=== PATIENT | female | born 1945 | race Caucasian/White ===

== ENCOUNTER 2024-04-17 08:38 | Emergency (ER) | payer MEDICARE, OTHER, SELFPAY ==
[2024-04-17 08:45] VITALS: BP 177/103
[2024-04-17 09:36] VITALS: BMI 24.6
[2024-04-17 09:45] LABS: % Basophils 1.7 % (0-2); % Eosinophils 1.3 % (0-6); % Immature Granulocytes 0.3 % (0-0.5); % Lymphocytes 28.1 % (20.5-51.1); % Monocytes 6.4 % (1.7-9.3); % Neutrophils 62.2 % (42.2-75.2); Absolute Basophils 0.1 10^3/uL (0-0.2); Absolute Eosinophils 0.1 10^3/uL (0-0.7); Absolute Monocytes 0.5 10^3/uL (0.1-0.6); Absolute Neutrophils 4.4 10^3/uL (1.4-6.5); Hematocrit 37.2 % (37.0-47.0); Hemoglobin 12.1 g/dL (12.0-16.0); Mean Corp Hgb Conc. 32.5 g/dL (33.0-37.0); Mean Corpuscular Hgb 31.7 pg (27.0-31.0); Mean Corpuscular Volume 97.4 fL (81.0-99.0); Mean Platelet Volume 8.2 fL (7.4-10.4); Nucleated Red Blood Cells % 0 %; Platelet Count 345 10^3/uL (130-400); Red Blood Cell Count 3.82 10^6/uL (4.20-5.40); Red Cell Dist. Width 13.1 % (11.5-14.5)
--- NOTE | 2024-04-17 09:51 | ED.GENMED ---
History of Present Illness
General
Chief Complaint: Cardiac Symptoms
Source: patient
Exam Limitations: none
Time Seen by Provider: 04/17/24 09:22
Nursing documentation reviewed up to this point in time: agreed with
History of Present Illness
History of Present Illness:
Patient presents to ED secondary to intermittent chest pain over the past 2 weeks, lasting minutes at a time, with spontaneous resolution. Patient also reports associated, at times intermittent palpitations, which has been evaluated in the past via
Holter monitor with her upstream biomanufacturing technician at [facility]. Patient does not know etiology behind what was noted on the Holter monitor was told that her palpitation symptoms correlated with what was noted on Holter monitor. However, this is the
first time that patient is experiencing chest pain, different from generalized pain that she experiences with underlying fibromyalgia. Chest pain described as sharp, with radiation to her left shoulder and back at different times, without any
alleviating or exacerbating factors. Patient does state that she has been walking more recently, and even pushing herself. Denies recent travel or surgery. Denies leg pain or swelling. Denies associated shortness of breath, nausea, or dizziness.
There is family history of heart disease, on her father side. Denies smoking or drinking alcohol.
Review of Systems
Review of Systems
Allergies reviewed?: Yes
All Other Systems: ROS reviewed and negative except as documented in HPI and ROS
Constitutional: Reports no symptoms
EENT: Reports no symptoms
Respiratory: Reports no symptoms; Denies trouble breathing
Cardiac: Reports chest pain and palpitations; Denies diaphoresis
ABD/GI: Reports no symptoms; Denies nausea
Musculoskeletal: Reports no symptoms
Skin: Reports no symptoms
Neurological: Reports no symptoms
Phy Exam
Physical Exam
Physical Exam:
Physical Exam
General: no apparent distress, not acutely ill. afebrile.
Head: nc/at. eomi
Neck: supple. no meningeal signs.
Heart: s1/s2 regular rate and rhythm, no murmur. equal radial pulses.
Lungs: no acute respiratory distress. clear bilaterally
Abdomen: normal bowel sounds. not tender.
Neuro: alert and oriented. no focal neurological deficits
Skin: no rash
Psychiatric: well kept. interactive and cooperative
Extremities: no edema. no calf tenderness.
Scores
Heart Score for Chest Pain Patients
STEMI patient?: No
History: Slightly or Non-Suspicious
ECG: Normal
Age: >/= 65 years
Risk Factors: 1 or 2 Risk Factors
Troponin: </= Normal Limit
Heart Score for Chest Pain Patients: 3
Heart Score Risk: 2.5% MACE over next 6 weeks
Course
Orders/Labs/Results
Orders:
Orders
04/17/24 08:44
EKG- Treatment ONCE
04/17/24 08:48
Electrocardiogram (*1) Stat
Comment: ALREADY DONE IN ED
04/17/24 09:37
Complete Blood Count/With Diff Urgent
Comprehensive Metabolic Panel Urgent
Troponin I Urgent
04/17/24 10:15
CR Chest - 2 Views Urgent
Comment:
Reason For Exam: chest pain
Abnormal Lab Results
04/17/24
09:37
RBC 3.82 L 10^6/uL
(4.20-5.40)
MCH 31.7 H pg
(27.0-31.0)
MCHC 32.5 L g/dL
(33.0-37.0)
04/17/24 09:37
04/17/24 09:37
Vital Signs
Initial and Last Documented VS:
Initial Vital Signs
Temp Pulse Resp BP Pulse Ox
98.1 F 93 18 177/103 97
04/17/24 08:45 04/17/24 08:45 04/17/24 08:45 04/17/24 08:45 04/17/24 08:45
Last Documented Vital Signs
Temp Pulse Resp BP Pulse Ox
98.1 F 96 25 150/86 98
04/17/24 08:45 04/17/24 11:03 04/17/24 11:03 04/17/24 11:03 04/17/24 10:30
MDM/Problems Addressed
MDM/Problems Addressed:
Patient with an unremarkable workup in ED, including blood work and EKG. In light of the fact that patient has had intermittent ongoing symptoms for the past 2 weeks, do not believe that repeat troponin will be beneficial at this time. However, in
light of patient's new onset of chest pain along with family history, it is reasonable that she contact her primary upstream biomanufacturing technician upon discharge for an outpatient urgent consultation. Advised to return to ED immediately with worsening symptoms.
*EKG
Interpreted by ED Provider?: Yes
EKG Intrepretation Date: 04/17/24
Interpretation: normal
Heart Rate: 83
Rate: normal
[place]: normal axis
Interval: normal interval
QRS Pattern: normal QRS
*Critical Care Note
Total Time (30-74mins, 75-104mins- exclusive of procedures): Not Applicable
ED Attending Note
-
Portions of this chart may have been created with voice recognition software.� Occasional wrong word or��sound alike� substitutions may have occurred due to the inherent limitations of voice recognition software.
Discharge Plan
Departure
Patient Disposition: Home (Routine Discharge)
Date of Disposition: 04/17/24
Time of Disposition: 11:06
Patient with high blood pressure during this ER visit?: Yes
Condition: Good
Discharge Problem:
Chest pain, Premature atrial contractions
Instructions: Arrhythmias (DC), Chest Pain NON-DHP Competency Evaluated Nurse Aide Follow Up
Prescriptions:
No Action
acetaminophen [Tylenol] 325 mg Tablet
325 mg PO BIDPRN PRN (Reason: MILD PAIN)
aspirin 325 mg Tablet
325 mg PO DAILYPRN PRN (Reason: CHEST PAIN)
lisinopril 20 mg Tablet
20 mg PO DAILY
Theragen Tablet
1 tab PO DAILY
pantoprazole [Protonix] 40 mg Tablet,Delayed Release (Dr/Ec)
40 mg PO DAILY
ezetimibe [Zetia] 10 mg Tablet
10 mg PO DAILY
bupropion HCl [Wellbutrin XL] 300 mg Tablet Extended Release 24 Hr
300 mg PO DAILY
duloxetine [Cymbalta] 30 mg Capsule,Delayed Release(Dr/Ec)
30 mg PO DAILY
duloxetine [Cymbalta] 60 mg Capsule,Delayed Release(Dr/Ec)
60 mg PO HS
cholecalciferol (vitamin D3) [Vitamin D3] 25 mcg (1,000 unit) Tablet
25 mcg PO DAILY
omega 8-rtk-whe-fish oil [Fish Oil] 1,000 (120-180) mg Capsule
1 cap PO DAILY
turmeric 400 mg Capsule
400 mg PO DAILY
ashwagandha extract 500 mg Capsule
500 mg PO DAILY
Referrals:
Delbert Rader MD [Active] -
Darci Brown MD [Family Provider] -
Activity Restrictions/Additional Instructions:
As discussed, please follow-up with your upstream biomanufacturing technician for further evaluation and treatment. In ED, blood work, EKG, and chest x-ray did not reveal any acute abnormalities. Please consider returning to ED with worsening symptoms.
Interventions
Interventions:
*Risk Screen - Suicide Last Done: 04/17/24 08:44
*General Assessment Last Done: 04/17/24 08:41
*Neglect/Abuse Screening Last Done: 04/17/24 08:41
*Nursing Disposition Last Done: 04/17/24 11:32
ED- Pulmonary Assessment Last Done: 04/17/24 09:36
ED- Cardiac Assessment Last Done: 04/17/24 09:36
Discharge Date and Time
Discharge Date/Time: 04/17/24 11:32
Print Language: [place] CITIZEN
[2024-04-17 10:01] VITALS: BP 142/88
[2024-04-17 10:02] LABS: ALT (SGPT) 25 U/L (0-35); AST (SGOT) 36 U/L (14-36); Albumin 4.4 g/dl (3.5-5.0); Alkaline Phosphatase 51 U/L (38-126); Blood Urea Nitrogen 16 mg/dl (7-17); Calcium 8.7 mg/dl (8.4-10.2); Carbon Dioxide 30 mmol/L (22-30); Chloride 101 mmol/L (98-107); Estimated Creatinine Clearance 56 ml/min; Glucose 94 mg/dl (70-99); Potassium 3.9 mmol/L (3.5-5.1); Sodium 139 mmol/L (135-145); Total Bilirubin 0.5 mg/dl (0.2-1.3); Total Protein 6.7 g/dl (6.3-8.2); eGFR > 60.00
[2024-04-17 10:14] LABS: Troponin I < 0.012 ng/ml
[2024-04-17 11:03] VITALS: BP 150/86
== END 2024-04-17 11:32 | disposition home or self-care (01) ==
LOC: EMR 08:38
PROVIDERS: EMERGENCY PHYSICIAN Emergency Medicine; FAMILY PHYSICIAN Internal Medicine
DX: R07.89 Other chest pain (principal); I49.1 Atrial premature depolarization; M79.7 Fibromyalgia
CPT/HCPCS: 99285; 71046; 80053; 84484; 85025; 93005

== ENCOUNTER 2024-05-30 14:45 | Emergency (ER) | payer MEDICARE, OTHER, SELFPAY ==
[2024-05-30 15:23] VITALS: BP 126/85
--- NOTE | 2024-05-30 15:32 | ED.GENMED ---
ED Provider Triage
<SAMARA Ferrera - Last Filed: 05/30/24 15:34>
-
Patient seen by provider in Triage?: Seen in Triage
Attestation: A medical screening examination has been initiated by a qualified medical provider. Based on the assessment performed at this time, it has been determined that an emergent medical condition may exist and the patient has been informed
that further medical evaluation and possible additional diagnostic testing may be needed.
HPI: Patient is a 78-year-old who started with vertigo 3 days ago. She reports it was worse 3 days ago better now. She could not even turn her head or look to different directions without feeling vertigo. She has been physical happy for balance
and they were concerned that this was more of a stroke and sent here to the ER. She denies any recent trauma, headaches .
GENERAL: Alert , in no apparent distress
EYE: No visual abnormalities.
NECK: Trachea midline
ENT: No visible abnormalities.
LUNGS: No acute respiratory distress
NEUROLOGICAL: Alert and oriented
SKIN: Skin intact. No visible changes.
MUSCULOSKELETAL: Moving extremities normally
PSYCH: Normal and appropriate interaction.
This is a medical evaluation conducted in person to initiate diagnostic evaluation and provide initial therapeutics. Please see further documentation by the treating clinician.
History of Present Illness
<SAMARA Ferrera - Last Filed: 05/30/24 15:34>
General
Chief Complaint: Dizziness
Time Seen by Provider: 05/30/24 20:07
<Olive Turner MD - Last Filed: 05/30/24 22:49>
General
Source: patient and spouse
Exam Limitations: none
Nursing documentation reviewed up to this point in time: agreed with
History of Present Illness
History of Present Illness:
The patient is a very pleasant 78-year-old female who reports that she experienced sudden onset of dizziness 4 days ago. Patient reports that she experienced a sense of the room spinning and had to hold onto her to walk steadily. The
patient reports she has had vertigo in the past and it felt like vertigo. Patient reports that this vertigo lasted for 3 days. She was encouraged by her primary care doctor to be evaluated by physical therapy today, which she did. However,
patient reports that her symptoms this morning when she woke up were completely gone. While being evaluated in physical therapy today, the patient reports that the physical therapist had her take a few steps and move her head from [id number],
which she had some difficulty doing. This prompted the physical therapist to send her to the ED for evaluation. Patient reports that she has no symptoms at this time. She reports she is able to walk steadily denies a headache. She reports she
has never had any visual changes, weakness or numbness. Patient reports she feels well and really wants to go home
Past History
<Olive Turner MD - Last Filed: 05/30/24 22:49>
Past History
ED Past Medical History: HTN
ED Past Surgical History: Other
Social History
Tobacco: Non-smoker
Alcohol: None
Drug: None
Personal:
Living: with family
Employment: Other
Family History
Family History: Other
Review of Systems
<Olive Turner MD - Last Filed: 05/30/24 22:49>
Review of Systems
Allergies reviewed?: Yes
Constitutional: Reports no symptoms
EENT: Reports no symptoms
Respiratory: Reports no symptoms
Cardiac: Reports no symptoms
ABD/GI: Reports no symptoms
: Reports no symptoms
Musculoskeletal: Reports no symptoms
Skin: Reports no symptoms
Neurological: Reports dizzy
Endocrine: Reports no symptoms
Hematologic/Lymphatic: Reports no symptoms
Psychiatric: Reports no symptoms
Phy Exam
<Olive Turner MD - Last Filed: 05/30/24 22:49>
Physical Exam
Physical Exam:
Physical Exam
General: no apparent distress, not acutely ill. Smiling, conversational
Neck: supple. no meningeal signs. normal psoterior pharynx
Heart: s1/s2 regular rate and rhythm, no murmur. equal radial pulses.
Lungs: no acute respiratory distress. clear bilaterally
Abdomen: normal bowel sounds. not tender. no CVAT
Neuro: alert and orientedx3. no focal neurological deficits. 5 out of 5 strength in all extremities without drift. Normal finger-nose. Steady gait. Visual laws intact. Extraocular muscles intact
Skin: no rash
Psychiatric: well kept. interactive and cooperative
Extremities: no edema. no calf tenderness. negative homans. good distal pulses
Course
<SAMARA Ferrera - Last Filed: 05/30/24 15:34>
Orders/Labs/Results
Orders:
Orders
05/30/24 15:23
Electrocardiogram (*1) Urgent
Reason for Study: Vertigo / Dizzy
EKG- Treatment ONCE
05/30/24 15:33
CT Head W/o Iv Contrast Urgent
Comment:
Reason For Exam: vertigo
05/30/24 15:47
CMP [Comprehensive Metabolic Panel] Urgent
Complete Blood Count/With Diff Urgent
Abnormal Lab Results
05/30/24
15:47
RBC 4.10 L 10^6/uL
(4.20-5.40)
MCV 99.3 H fL
(81.0-99.0)
MCH 32.4 H pg
(27.0-31.0)
MCHC 32.7 L g/dL
(33.0-37.0)
Carbon Dioxide 31 H mmol/L
(22-30)
BUN 19 H mg/dl
(7-17)
05/30/24 15:47
05/30/24 15:47
Vital Signs
Initial and Last Documented VS:
Initial Vital Signs
Temp Pulse Resp BP Pulse Ox
98.3 F 73 16 126/85 96
05/30/24 15:23 05/30/24 15:23 05/30/24 15:23 05/30/24 15:23 05/30/24 15:23
Last Documented Vital Signs
Temp Pulse Resp BP Pulse Ox
98.3 F 65 18 152/88 94
05/30/24 15:23 05/30/24 20:24 05/30/24 20:24 05/30/24 20:24 05/30/24 20:24
<Olive Turner MD - Last Filed: 05/30/24 22:49>
Orders/Labs/Results
Orders:
Orders
05/30/24 15:23
Electrocardiogram (*1) Urgent
Reason for Study: Vertigo / Dizzy
EKG- Treatment ONCE
05/30/24 15:33
CT Head W/o Iv Contrast Urgent
Comment:
Reason For Exam: vertigo
05/30/24 15:47
CMP [Comprehensive Metabolic Panel] Urgent
Complete Blood Count/With Diff Urgent
Abnormal Lab Results
05/30/24
15:47
RBC 4.10 L 10^6/uL
(4.20-5.40)
MCV 99.3 H fL
(81.0-99.0)
MCH 32.4 H pg
(27.0-31.0)
MCHC 32.7 L g/dL
(33.0-37.0)
Carbon Dioxide 31 H mmol/L
(22-30)
BUN 19 H mg/dl
(7-17)
05/30/24 15:47
05/30/24 15:47
Vital Signs
Initial and Last Documented VS:
Initial Vital Signs
Temp Pulse Resp BP Pulse Ox
98.3 F 73 16 126/85 96
05/30/24 15:23 05/30/24 15:23 05/30/24 15:23 05/30/24 15:23 05/30/24 15:23
Last Documented Vital Signs
Temp Pulse Resp BP Pulse Ox
98.3 F 65 18 152/88 94
05/30/24 15:23 05/30/24 20:24 05/30/24 20:24 05/30/24 20:24 05/30/24 20:24
<Olive Turner MD - Last Filed: 05/30/24 22:49>
MDM/Problems Addressed
Differential Diagnosis Includes:
Benign positional vertigo which has resolved, TIA with resolved symptoms, hyponatremia
Chronic conditions affecting care: HTN
<Olive Turner MD - Last Filed: 05/30/24 22:49>
*Radiology
Radiology exam reviewed: radiology read reviewed
*Pulse Oximetry
Patient hypoxic: no
*EKG
Interpreted by ED Provider?: Yes
Interpretation: abnormal
Comparison EKG: no comparison EKG present
Rate: normal
Rhythm: sinus
[place]: left axis deviation
Interval: normal interval
QRS Pattern: normal QRS
Ischemia: non-specific ST changes
*Business Office Associate Interpretation
Rate: normal
Interpretation: normal
Rhythm: sinus
*Critical Care Note
Total Time (30-74mins, 75-104mins- exclusive of procedures): Not Applicable
Data Reviewed
Source: patient and spouse
<Olive Turner MD - Last Filed: 05/30/24 22:49>
Patient Management
Social determinants of health affecting care: Living situation and Strong social support
Escalation/DeEscalation of care consider admission/obs:
Patient has a completely normal neurological exam. She looks well and comfortable. She has a steady gait. She would really rather go home. She understands there is a small risk that she had a TIA, but states that she would rather go home and
follow-up with her primary care doctor. Patient understands to return with any visual changes, weakness, numbness or recurrent dizziness
ED Attending Note
<SAMARA Ferrera - Last Filed: 05/30/24 15:34>
-
Portions of this chart may have been created with voice recognition software.� Occasional wrong word or��sound alike� substitutions may have occurred due to the inherent limitations of voice recognition software.
Discharge Plan
Departure
Patient Disposition: Home (Routine Discharge)
Date of Disposition: 05/30/24
Time of Disposition: 20:26
Patient with high blood pressure during this ER visit?: Yes
Condition: Good
Covid-19: Not Applicable
Discharge Problem:
Vertigo
Instructions: Dizziness, BLOOD PRESSURE
Prescriptions:
No Action
acetaminophen [Tylenol] 325 mg Tablet
325 mg PO BIDPRN PRN (Reason: MILD PAIN)
aspirin 325 mg Tablet
325 mg PO DAILYPRN PRN (Reason: CHEST PAIN)
lisinopril 20 mg Tablet
20 mg PO DAILY
Theragen Tablet
1 tab PO DAILY
pantoprazole [Protonix] 40 mg Tablet,Delayed Release (Dr/Ec)
40 mg PO DAILY
ezetimibe [Zetia] 10 mg Tablet
10 mg PO DAILY
bupropion HCl [Wellbutrin XL] 300 mg Tablet Extended Release 24 Hr
300 mg PO DAILY
duloxetine [Cymbalta] 30 mg Capsule,Delayed Release(Dr/Ec)
30 mg PO DAILY
duloxetine [Cymbalta] 60 mg Capsule,Delayed Release(Dr/Ec)
60 mg PO HS
cholecalciferol (vitamin D3) [Vitamin D3] 25 mcg (1,000 unit) Tablet
25 mcg PO DAILY
omega 4-ggp-slh-fish oil [Fish Oil] 1,000 (120-180) mg Capsule
1 cap PO DAILY
turmeric 400 mg Capsule
400 mg PO DAILY
ashwagandha extract 500 mg Capsule
500 mg PO DAILY
Activity Restrictions/Additional Instructions:
Follow-up with your primary care doctor within 1 week. Return with any recurrence of dizziness or any vision changes
Interventions
Interventions:
*Risk Screen - Suicide Last Done: 05/30/24 15:23
*General Assessment Last Done: 05/30/24 15:23
*Neglect/Abuse Screening Last Done: 05/30/24 20:24
ED- Fall Risk Assessment Last Done: 05/30/24 20:28
*ED COVID-19 Vaccine History Last Done: 05/30/24 20:24
*Nursing Disposition Last Done: 05/30/24 20:50
ED- Neurological Assessment Last Done: 05/30/24 20:27
ED Swallowing Screen Last Done: 05/30/24 20:27
Discharge Date and Time
Discharge Date/Time: 05/30/24 20:51
Print Language: CRO[place]
[2024-05-30 15:53] LABS: % Basophils 1.6 % (0-2); % Eosinophils 1.6 % (0-6); % Immature Granulocytes 0.4 % (0-0.5); % Lymphocytes 30.4 % (20.5-51.1); % Monocytes 6.1 % (1.7-9.3); % Neutrophils 59.9 % (42.2-75.2); Absolute Basophils 0.1 10^3/uL (0-0.2); Absolute Eosinophils 0.1 10^3/uL (0-0.7); Absolute Lymphocytes 2.5 10^3/uL (1.2-3.4); Absolute Monocytes 0.5 10^3/uL (0.1-0.6); Absolute Neutrophils 4.9 10^3/uL (1.4-6.5); Hematocrit 40.7 % (37.0-47.0); Hemoglobin 13.3 g/dL (12.0-16.0); Mean Corp Hgb Conc. 32.7 g/dL (33.0-37.0); Mean Corpuscular Hgb 32.4 pg (27.0-31.0); Mean Corpuscular Volume 99.3 fL (81.0-99.0); Mean Platelet Volume 8.2 fL (7.4-10.4); Nucleated Red Blood Cells % 0 %; Platelet Count 344 10^3/uL (130-400); Red Cell Dist. Width 12.9 % (11.5-14.5); White Blood Cell Count 8.2 10^3/uL (4.8-10.8)
[2024-05-30 16:11] LABS: ALT (SGPT) 20 U/L (0-35); AST (SGOT) 29 U/L (14-36); Albumin 4.3 g/dl (3.5-5.0); Alkaline Phosphatase 51 U/L (38-126); Blood Urea Nitrogen 19 mg/dl (7-17); Carbon Dioxide 31 mmol/L (22-30); Chloride 99 mmol/L (98-107); Glucose 83 mg/dl (70-99); Potassium 4.4 mmol/L (3.5-5.1); Sodium 136 mmol/L (135-145); Total Bilirubin 0.4 mg/dl (0.2-1.3); Total Protein 6.6 g/dl (6.3-8.2); eGFR > 60.00
[2024-05-30 20:24] VITALS: BP 152/88
== END 2024-05-30 20:51 | disposition home or self-care (01) ==
LOC: EMR 14:45
PROVIDERS: Emergency Medicine; EMERGENCY PHYSICIAN Emergency Medicine; FAMILY PHYSICIAN Internal Medicine
DX: R42 Dizziness and giddiness (principal); I10 Essential (primary) hypertension
CPT/HCPCS: 99284; 70450; 80053; 85025; 93005

== ENCOUNTER → 2024-06-18 10:46 | Outpatient (REF) | payer MEDICARE, OTHER, SELFPAY | LOC: HWRAD 10:46 | PROVIDERS: ATTENDING PHYSICIAN Internal Medicine | DX: R42 Dizziness and giddiness (principal); I70.90 Unspecified atherosclerosis; I67.2 Cerebral atherosclerosis | CPT/HCPCS: 93880 ==

== ENCOUNTER → 2024-07-11 12:55 | Outpatient (REF) | payer MEDICARE, OTHER, SELFPAY | LOC: RSP 12:55 | PROVIDERS: ATTENDING PHYSICIAN Internal Medicine | DX: R06.09 Other forms of dyspnea (principal) | CPT/HCPCS: 94727; 94729; 88738; 94010 ==

== ENCOUNTER → 2024-09-23 11:15 | Outpatient (REF) | payer MEDICARE, OTHER, SELFPAY | LOC: DHSLP 11:15 | PROVIDERS: ATTENDING PHYSICIAN Internal Medicine Critical Care Medicine; FAMILY PHYSICIAN Internal Medicine | DX: G47.33 Obstructive sleep apnea (adult) (pediatric) (principal) | CPT/HCPCS: 95800 ==

== ENCOUNTER 2025-02-14 23:30 | Observation (INO) | payer MEDICARE, OTHER, SELFPAY ==
[2025-02-14 16:58] VITALS: BP 130/94
[2025-02-14 17:25] LABS: Hematocrit 37.6 % (37.0-47.0); Hemoglobin 12.3 g/dL (12.0-16.0); Mean Corp Hgb Conc. 32.7 g/dL (33.0-37.0); Mean Corpuscular Volume 96.2 fL (81.0-99.0); Nucleated Red Blood Cells % 0 %; Platelet Count 363 10^3/uL (130-400); Red Cell Dist. Width 13.2 % (11.5-14.5)
[2025-02-14 17:43] LABS: APTT 28.3 Sec (23.4-35.0); INR 0.91; PT 12.5 Sec (11.4-14.6)
[2025-02-14 17:45] LABS: ALT (SGPT) 26 U/L (0-35); AST (SGOT) 29 U/L (14-36); Albumin 4.3 g/dl (3.5-5.0); Alkaline Phosphatase 52 U/L (38-126); Blood Urea Nitrogen 22 mg/dl (7-17); Calcium 9.0 mg/dl (8.4-10.2); Carbon Dioxide 30 mmol/L (22-30); Chloride 101 mmol/L (98-107); Glucose 94 mg/dl (70-99); Potassium 4.7 mmol/L (3.5-5.1); Sodium 137 mmol/L (135-145); Total Protein 6.5 g/dl (6.3-8.2); eGFR > 60.00
[2025-02-14 20:40] VITALS: BMI 25.3
[2025-02-14 20:43] VITALS: BP 132/84
[2025-02-14 21:00] VITALS: BP 132/85
[2025-02-14] MEDS: NSS 1000 IV (21:15)
--- NOTE | 2025-02-14 21:52 | ED.GENMED ---
History of Present Illness
<Misa Fang MD - Last Filed: 02/14/25 21:53>
General
Chief Complaint: Dizziness
Time Seen by Provider: 02/14/25 21:18
<Marie Briggs NP - Last Filed: 02/15/25 13:23>
General
Source: patient
Exam Limitations: none
Nursing documentation reviewed up to this point in time: agreed with
History of Present Illness
History of Present Illness:
Patient to ED with report of migraine headache and vertigo this AM and yesterday AM. States she woke both days with her symptoms. SHe reports a history of migraines as a child but that her migraines became infrequent as an adult. Her childhood
migraines were centerered around her eye while the pain she has had the passt 2 mornings has been diffuse. Pain resolved with tylenol. SHe had her first episode of vertigo in May and was treated with antivert and vestibular rehab. She has had
no further issues until yesterday AM. SHe took antivert with improvement in dizziness. States she was seen again today by vestibular therapist and was told that testing today was concerning for a central cause and she should come to ED as this
could be precurser to a stroke. Brought to ED by spouse for eval. SHe is awake and alert. Reports still with sensation of feeling off-balance when standing or ambulating but improved from AM.
Past History
<Misa Fang MD - Last Filed: 02/14/25 21:53>
Past History
ED Past Medical History: HTN
ED Past Surgical History: Other
Social History
Tobacco: Non-smoker
Alcohol: None
Drug: None
Personal:
Living: with family
Employment: Other
Family History
Family History: Other
<Marie Briggs NP - Last Filed: 02/15/25 13:23>
Past History
ED Past Medical History: GERD
Review of Systems
<Marie Briggs SENIOR MANAGER - Last Filed: 02/15/25 13:23>
Review of Systems
Allergies reviewed?: Yes
All Other Systems: ROS reviewed and negative except as documented in HPI and ROS
Constitutional: Reports no symptoms
EENT: Reports no symptoms
Respiratory: Reports no symptoms
Cardiac: Reports no symptoms
ABD/GI: Reports no symptoms
: Reports no symptoms
Musculoskeletal: Reports no symptoms
Skin: Reports no symptoms
Neurological: Reports dizzy and headache
Psychiatric: Reports no symptoms
Phy Exam
<Marie Briggs SENIOR MANAGER - Last Filed: 02/15/25 13:23>
General Physical Exam
General Presentation: well appearing and mild distress
General age: appears stated age
General Skin: warm
General Habitus: normal
General Mental: alert
General Hydration: appears well hydrated
ENT Exam
ENT Exam: EOMI, TM's normal, neck supple and normocephalic
Eye Exam
Eye Exam: PERRL, EOMI, conjunctiva normal, disc sharp and globe normal
Cardiovascular Exam
Cardiovascular Exam: regular rate/rhythm and no edema
NIH Stroke Score
Level of Consciousness: 0 - Alert
LOC questions: 0-Answers both correctly
LOC Commands: 0-Performs both correctly
Best Gaze: 0-Normal
Visual Green: 0=Normal, no visual loss
Facial palsy: 0=Normal, symmetrical
Motor - Right Arm: 0=No drift 10 seconds
Motor - Left Arm: 0=No drift 10 seconds
Motor - Right Le-No drift 5 seconds
Motor - Left Le-No drift 5 seconds
Limb Ataxia: 0-Absent
Sensation: 0-Normal
Best Language: 0-No aphasia
Dysarthria: 0-Normal
Extinction and Inattention: 0-No abnormality
Total Score:: 0
Ita Coma Scale
Eye Opening: Spontaneous
Verbal Response: Oriented
Motor Response: Obeys Commands
GCS Total Score: 15
Mental
Mental Status: oriented to person, oriented to place, oriented to time and usual mental status
Cranial
Cranial Nerves: normal
EOM (CN3/4/6): intact
Motor
Seizure Activity: none
Gait: normal
Tremors: none
Right upper extremity: 4
Right lower extremity: 4
Left upper extremity: 4
Left lower extremity: 4
Bilateral upper extremities: 4
Bilateral lower extremities: 4
Sensory
Sensory Exam: intact
Cerebellar
Cerebellar Function: normal finger to nose and normal Romberg test
Musculoskeletal Exam
Musculoskeletal Exam: full ROM and neuro vasc intact
Skin Exam
Skin Exam: normal color, warm/dry and no rash
Psychiatric Exam
Psychiatric Exam: normal mood/affect
Course
<Misa Fang MD - Last Filed: 02/14/25 21:53>
Orders/Labs/Results
Orders:
Orders
02/14/25 17:07
CT Head W/o Iv Contrast Urgent
Comment:
Reason For Exam: central vertigo
02/14/25 17:15
Complete Blood Count/With Diff Urgent
Comprehensive Metabolic Panel Urgent
PT/INR [Prothrombin Time] Urgent
PTT Urgent
02/14/25 17:57
Electrocardiogram (*1) Urgent
Reason for Study: Vertigo / Dizzy
02/14/25 17:58
EKG- Treatment ONCE
02/14/25 21:14
0.9% Sodium Chloride 1000 ml [Nss] 1,000 ml IV BOLUS
02/14/25 22:49
NEUROLOGY CONSULT Urgent
Consulting Provider: Tameka Horne
Was physician already notified: Yes
02/14/25 23:29
Duloxetine Delayed Release [Cymbalta Delayed Release] 30 mg PO NOW STA
Abnormal Lab Results
02/14/25
17:15
RBC 3.91 L 10^6/uL
(4.20-5.40)
MCH 31.5 H pg
(27.0-31.0)
MCHC 32.7 L g/dL
(33.0-37.0)
Absolute Monos (auto) 0.7 H 10^3/uL
(0.1-0.6)
BUN 22 H mg/dl
(7-17)
02/14/25 17:15
02/14/25 17:15
Vital Signs
Initial and Last Documented VS:
Initial Vital Signs
Temp Pulse Resp BP Pulse Ox
98.1 F 79 18 130/94 94
02/14/25 16:58 02/14/25 16:58 02/14/25 16:58 02/14/25 16:58 02/14/25 16:58
Last Documented Vital Signs
Temp Pulse Resp BP Pulse Ox
97.3 F 74 16 113/67 98
02/15/25 11:46 02/15/25 11:46 02/15/25 11:46 02/15/25 11:46 02/15/25 08:00
<Marie Briggs NP - Last Filed: 02/15/25 13:23>
Orders/Labs/Results
Orders:
Orders
02/14/25 17:07
CT Head W/o Iv Contrast Urgent
Comment:
Reason For Exam: central vertigo
02/14/25 17:15
Complete Blood Count/With Diff Urgent
Comprehensive Metabolic Panel Urgent
PT/INR [Prothrombin Time] Urgent
PTT Urgent
02/14/25 17:57
Electrocardiogram (*1) Urgent
Reason for Study: Vertigo / Dizzy
02/14/25 17:58
EKG- Treatment ONCE
02/14/25 21:14
0.9% Sodium Chloride 1000 ml [Nss] 1,000 ml IV BOLUS
02/14/25 22:49
NEUROLOGY CONSULT Urgent
Consulting Provider: Tameka Horne
Was physician already notified: Yes
02/14/25 23:29
Duloxetine Delayed Release [Cymbalta Delayed Release] 30 mg PO NOW STA
Abnormal Lab Results
02/14/25
17:15
RBC 3.91 L 10^6/uL
(4.20-5.40)
MCH 31.5 H pg
(27.0-31.0)
MCHC 32.7 L g/dL
(33.0-37.0)
Absolute Monos (auto) 0.7 H 10^3/uL
(0.1-0.6)
BUN 22 H mg/dl
(7-17)
02/14/25 17:15
02/14/25 17:15
Vital Signs
Initial and Last Documented VS:
Initial Vital Signs
Temp Pulse Resp BP Pulse Ox
98.1 F 79 18 130/94 94
02/14/25 16:58 02/14/25 16:58 02/14/25 16:58 02/14/25 16:58 02/14/25 16:58
Last Documented Vital Signs
Temp Pulse Resp BP Pulse Ox
97.3 F 74 16 113/67 98
02/15/25 11:46 02/15/25 11:46 02/15/25 11:46 02/15/25 11:46 02/15/25 08:00
<Misa Fang MD - Last Filed: 02/14/25 21:53>
*Pulse Oximetry
SaO2: 95
Oxygen Mode of Delivery: Room air
<Marie Briggs NP - Last Filed: 02/15/25 13:23>
*Radiology
Radiology exam reviewed: radiology read reviewed
*Pulse Oximetry
Patient hypoxic: no
*Critical Care Note
Total Time (30-74mins, 75-104mins- exclusive of procedures): Not Applicable
<Marie Briggs NP - Last Filed: 02/15/25 13:23>
Update Note
Update Note:
Patient to ED with report of change in migraines, vertigo x 2 days. Seen by vestibular therpast who was concerned about changes in testing results today. Sent to ED for eval. vertigo and migraine responding to her meds however still unstable with
ambulation. Will admit to hospitalist, for MRI in AM. Dr. Horne consulted.
ED Attending Note
<Misa Fang MD - Last Filed: 02/14/25 21:53>
ED Attending Note
Patient seen and examined by attending physician: Yes
I performed the substantive portion of visit, reviewed & personally made and approve the management plan that is documented in note by myself or GODWIN.: Yes
ED Attending Note:
79-year-old female with a history of vestibular migraines which she says manifest initially as blurry vision followed by pressure in the midface area. She sees a vestibular therapist. Yesterday morning she developed intense feeling of vertigo
relieved with Antivert. She was fine throughout the day and then this morning she again had intense vertigo such that she needed to hold onto her . She feels 'wobbly' when she is up and about but does not experience any sense of imbalance
spinning etc. while laying here in the bed. Vestibular therapist did extensive examination and was concern for central process based on a 'positive hints exam' and direction changing nystagmus. Here, patient denies diplopia, dysarthria, dysphagia.
No dysmetria noted on exam. On my exam, no nystagmus noted, [id number] normal, cranial nerves II through XII intact. Given suspicion of potential for central process which cannot be fully excluded with a CT here, patient will be kept
overnight for observation and further testing
-
Portions of this chart may have been created with voice recognition software.� Occasional wrong word or��sound alike� substitutions may have occurred due to the inherent limitations of voice recognition software.
Discharge Plan
Departure
Patient Disposition: Admit
Date of Disposition: 02/14/25
Time of Disposition: 22:47
Presentation/result/management discussed w/ accepting MD/DO: Hospitalist
Condition: Fair
Discharge Problem:
Vertigo
Interventions
Interventions:
*Risk Screen - Suicide Last Done: 02/14/25 16:58
*General Assessment Last Done: 02/14/25 20:38
*Neglect/Abuse Screening Last Done: 02/14/25 16:58
*ED- Fall Risk Assessment Last Done: 02/14/25 20:38
*ED COVID-19 Vaccine History Last Done: 02/14/25 20:38
*Nursing Disposition Last Done: 02/15/25 00:39
ED- Neurological Assessment Last Done: 02/14/25 21:00
ED- Cardiac Assessment Last Done: 02/14/25 21:00
ED Swallowing Screen Last Done: 02/14/25 21:00
Discharge Date and Time
Discharge Date/Time: 02/15/25 00:40
[2025-02-14 22:00] VITALS: BP 145/90
--- NOTE | 2025-02-14 22:59 | HPS.HSE ---
Family Physician
-
Family Physician: Nya Lezama
Chief Complaint
-
vertigo and migraine
History of Present Illness
Patient is a 79-year-old female with past medical history significant for hypertension, hyperlipidemia, migraines, fibromyalgia and osteoporosis who presented to [facility] ED for evaluation of vertigo and migraine. Patient reports waking this morning and
yesterday morning with a migraine with diffuse pain and vertigo. Patient reports taking meclizine [id number] yesterday with positive effect and today took 1 dose and went to see vestibular therapist who did some testing and requested patient come to ED
for evaluation for possible central cause. Patient reports that her vertigo has been the room spinning and does cause some nausea. She reports currently she is just feeling 'wobbly,' with no spinning. Denies any recent illness, fever, chills,
weakness, vomiting, confusion, facial droop, numbness or garbled speech.
Medical History
Past Medical History
Past Medical History: Reports Other
Additional Past Medical History:
hypertension
hyperlipidemia
migraines
fibromyalgia
osteoporosis
Luc-Danlos Syndrome
Past Surgical History: Reports Other
Additional Past Surgical History:
Discectomy
Tubal ligation
Meniscus repair
R rotator cuff repair
R/L knee replacements
Pelvic floor
L shoulder replaced
Social History
Tobacco: Former Smoker (quit 48 years ago)
Alcohol: Occasional (rarely )
Drug: None
Personal:
Living: With Family
Employment: Retired
Family History
Family History: Not pertinent
Allergies / Home Medications
Allergies reflects when Allergies were last updated in [facility].
Home Medications with original date entered in [facility]
Allergy/Medication List:
Allergies
Allergy/AdvReac Type Severity Reaction Status Date / Time
Sulfa (Sulfonamide Allergy Unknown Verified 02/14/25 16:58
Antibiotics)
Home Medications
acetaminophen 325 mg tablet (Tylenol) 325 mg PO BIDPRN PRN MILD PAIN 04/17/24
ashwagandha extract 500 mg capsule 500 mg PO DAILY 04/17/24
bupropion HCl 300 mg 24 hr tablet, extended release (Wellbutrin XL) 300 mg PO DAILY 04/17/24
cholecalciferol (vitamin D3) 25 mcg (1,000 unit) tablet (Vitamin D3) 25 mcg PO DAILY 04/17/24
ezetimibe 10 mg tablet (Zetia) 10 mg PO DAILY 04/17/24
lisinopril 20 mg tablet 40 mg PO DAILY 04/17/24
omega 1-fpd-fis-fish oil 1,000 mg (120 mg-180 mg) capsule (Fish Oil) 1 cap PO DAILY 04/17/24
pantoprazole 40 mg tablet,delayed release (Protonix) 40 mg PO DAILY 04/17/24
therapeutic multivitamin 1 tab PO DAILY 04/17/24
turmeric 400 mg capsule 400 mg PO DAILY 04/17/24
duloxetine 30 mg capsule,delayed release 30 mg PO BID 02/14/25
metoprolol succinate 25 mg capsule sprinkle, ext. release 24 hr 25 mg PO DAILY 02/14/25
Review of Systems
-
History Source: Patient
Constitutional: Denies Fever or Chills
EENT: Denies Sore Throat
Respiratory: Denies Cough or Trouble Breathing
Cardiac: Denies Chest Pain, Diaphoresis, Palpitations or Syncope
Abdomen/GI: Reports Nausea; Denies Abdominal Pain, Vomiting, Diarrhea or Constipated
: Denies Dysuria, Frequency or Urgency
Musculoskeletal: Denies Joint Pain or Joint Swelling
Skin: Denies Rash
Neurological: Reports Dizzy and Headache; Denies Weakness or Numbness
Physical Exam
Vital Signs
Vital Signs
Temp Pulse Resp BP Pulse Ox
98.1 F 76 19 145/90 96
02/14/25 16:58 02/14/25 22:00 02/14/25 22:00 02/14/25 22:00 02/14/25 22:00
Physical Exam
General: Well Developed, Well Nourished, No Apparent Distress, Comfortable and Conversant
HEENT: NormoCephalic, Moist mucous membranes and Atraumatic
Respiratory: Clear and Non Labored Respirations; No Wheezes, Rales, Rhonchi or Crackles
Cardiac: S1/S2 and Regular Rhythm; No Murmur, Rub or Gallop
Breast: Deferred by me
GI: Soft, Non Tender, Non Distended and Normal Bowel Sounds; No Organomegaly
Rectal: Deferred by Provider
Genito-urinary: Deferred by me
Musculoskeletal: No Clubbing, No Cyanosis and No Edema
Skin: Warm and IV/Catheter Site; No Rash
Neuro: Awake, AO x 3, No Motor Deficits, Nonfocal/grossly intact, Cranial Nerves Intact (II-XII) and No Sensory Deficits; No Slurred Speech, Facial Droop, Tremors or Sedated
Psych: Calm and Intact Judgment/Insight
Laboratory Results
-
02/14/25 17:15
02/14/25 17:15
Laboratory Results
PT 12.5 Sec (11.4-14.6) 02/14/25 17:15
INR 0.91 02/14/25 17:15
APTT 28.3 Sec (23.4-35.0) 02/14/25 17:15
Total Bilirubin 0.2 mg/dl (0.2-1.3) 02/14/25 17:15
AST 29 U/L (14-36) 02/14/25 17:15
ALT 26 U/L (0-35) 02/14/25 17:15
Alkaline Phosphatase 52 U/L (38-126) 02/14/25 17:15
Data Reviewed
-
CT Scan: Report Reviewed by me (Head CT: No acute intracranial abnormality.)
Medical Tests (Nuc Med, Echo, EKG etc): Report Reviewed by me (EKG: NORMAL SINUS RHYTHM)
Lab Data: Labs Reviewed by me
Impression/Plan
-
IMPRESSION/PLAN:
#vertigo and migraine 2/2 migraine vs. CVA/TIA
Head CT: No acute intracranial abnormality.
EKG: NORMAL SINUS RHYTHM
- Admit to telemetry
- Consult Neurology
- MRI in morning
- NIH and neuro checks per protocol
#hypertension
- continue lisinopril and metoprolol
#hyperlipidemia
- continue ezetimibe
#fibromyalgia
- continue Cymbalta
#migraines
#osteoporosis
Code status: full code
DVT prophylaxis: SCDs
[2025-02-14] MEDS: CYMBALTA DELAYED RELEASE 30 MG PO (23:35)
--- NOTE | 2025-02-14 23:51 | W.PN.UPDATE ---
Update Note
Progress Note Update
Patient seen and conjunction with nurse practitioner, I agree with the findings on history and physical. I concur with the assessment and plan.
Briefly, this is a 79-year-old female with past medical history significant for depression, hypertension, hyperlipidemia, GERD, prior episodes of vertigo who presents to the emergency department with approximately 2 days of dizziness. She reports
that dizziness started 1 day ago after getting up from bed. She reports when she starts to walk she noticed dizzy sensation associated with room spinning and nausea. She denies any vomiting. She denies having any palpitations or lightheadedness
or chest pain. She took meclizine x 2 during the day with resolution. The following morning she had another episode of dizziness and went to see a physical therapist who referred her to the emergency department.
Patient was previously seen in the emergency department for dizziness earlier in the year and was managed with meclizine. She reports some associated headache but denies any other focal logical deficits such as blurry vision or double vision. She
denies any weakness numbness or tingling.
In the emergency department she was afebrile, blood pressure was 145/90 with a pulse of 76 and she was satting 96% on room air. ECG shows a normal sinus rhythm at a rate of 70.
CT of her head was nonacute. CBC was unremarkable electrolytes BUN and creatinine were all normal.
Assessment and plan
Vertigo�patient with history of vertigo treated with meclizine suggestive of a likely peripheral vertigo such as M�ni�re's however cannot rule out central vertigo at this time. Currently patient is asymptomatic without dizziness vertigo nausea
vomiting or headache.
- Admit to telemetry observation
- Neurochecks Q46
- MRI brain
� Continue meclizine as needed
- Continue ezetimibe, metoprolol and lisinopril
� Check lipid panel and A1c in a.m.
- Neurology consult
DVT prophylaxis�SCDs
CODE STATUS�full code
[2025-02-15] VITALS (8 sets, daily range): BP systolic 113–166; BP diastolic 67–103; PULSE 82
--- NOTE | 2025-02-15 07:55 | CON.NEURO ---
Consultation
Order
Date of Consultation: 02/15/25
Requesting Provider: Marie Briggs NP
Reason for Consult: vertigo
Consult neurology Consultation Note.
HPI:This is a 79-year-old right-handed woman who presented to [facility] on 02/14/2025 with vertigo. According to the patient she woke up on 02/13/2025 with severe positional spinning. The vertigo episodes lasted for a few minutes at
a time and were exacerbated by walking and getting up, while lying flat provided some relief. She did not experience nausea, changes in vision, speech difficulties, or numbness/weakness on one side during these episodes.
She reports a history of vertigo, with her last episode occurring in May of this year, lasting about 4 days. For the current episode, she took meclizine, which helped alleviate her symptoms. She also reports chronic BL tinnitus and poor balance,
which has worsened since the onset of vertigo.
Prior to the onset of vertigo, she experienced bimaxillary pain and generalized headache throughout the week. She does have history of migraine with aura back in her teenage years. Ms. Lambert developed remittent visual aura only in the periphery
several years ago.
Her primary care physician recommended vestibular therapy, which she attended the day before admission. She experienced severe symptoms when turned to the right during Sebastian-Hallpike maneuver. Concerned about the possibility of a stroke, the physical
therapist recommended imaging, leading to the current hospitalization.
No reports of nasal congestion, seasonal allergies, or ear pain.
ER VS: 130/94, 79, afebrile
EKG:NSR, QTcB Int : 410 ms
PDMP: No recently prescribed medications
Labs: Normal glucose�WBCs, creatinine, sodium, LDL�113
CT head wo contrast�mild parenchymal atrophy and small vessel periventricular hypodensities. Paranasal sinuses and mastoid air cells are clear.
PMH: HTN, DLP, THERESA, IBS, OA, vitamin D, GERD, deficiency
PSH: Lumbar laminectomy, appendectomy, bladder lift, right knee replacement, tubal ligation, bilateral cataract surgery, right rotator cuff tear repair, left shoulder replaced
SH: , former special educational teacher, non-smoker, independent in ADLs
FH: Not contributory to current presentation
All: Sulfa
ROS: General: Negative for fever, chills, fatigue.
HEENT: Positive for tinnitus. Negative for ear pain, nasal congestion, sinus pain.
Gastrointestinal: Positive for intermittent diarrhea and constipation.
Musculoskeletal: Positive for back pain.
Neurological: Positive for vertigo, and intermittent headaches. Negative for numbness, weakness, speech changes, and vision changes.
General: Well developed. In no acute distress.
Cardio: Regular rate and rhythm without murmur. Extremities are without cyanosis or edema.
Neuro:
Mental Status: Alert, oriented to person, place, and date. Normal attention and recall. Good fund of knowledge. Follows complex requests across the midline. Comprehension, naming, and repetition intact. Anxious mood.
Cranial Nerves: Pupils are equally round, surgical. EOMs full. Visual laws full to confrontation. No ptosis. No nystagmus. Face symmetric. Impaired hearing AU. The palate elevated well. SCMs and traps 5/5. Tongue midline. No
dysarthria.
Motor: Normal bulk and tone. No pronator or arm drift. Strength 5/5 throughout. No clonus.
Reflexes: 2+ throughout the upper extremities and 1+ knees. Plantar responses flexor bilaterally.
Sensory: Absent vibration at the left total ankle and the knee
Coordination: No dysmetria or tremor.
Gait: deferred
Assessment and Plan:
I. Horizontal canal BPPV
II. Episodic migraine with aura
III. THERESA
- Fall precaution
- PT(Gufoni maneuver)
- Vestibular rehabilitation
- No additional neuroimages are indicated at this time.
- Ms. Lambert was counseled on recurrence, safety, and follow-up
- Please recall neurology service with any questions or concerns
I personally reviewed all radiology and labs along with past medical records pertinent to current medical problems. Total time spent in patient care is 58 minutes.
Thank you for allowing us to participate in the care of this patient. Please do not hesitate to contact us with any questions or concerns.
Subjective/Objective
Subjective Data
Date of Service: February 15, 2025
Objective Data
Vital Signs
Temp Pulse Resp BP Pulse Ox
36.4 C 68 18 166/68 94
02/15/25 03:00 02/15/25 03:00 02/15/25 03:00 02/15/25 03:00 02/15/25 03:00
Lab Results
02/14/25 17:15
02/14/25 17:15
PT 12.5 Sec (11.4-14.6) 02/14/25 17:15
INR 0.91 02/14/25 17:15
APTT 28.3 Sec (23.4-35.0) 02/14/25 17:15
Sodium 137 mmol/L (135-145) 02/14/25 17:15
Potassium 4.7 mmol/L (3.5-5.1) 02/14/25 17:15
BUN 22 mg/dl (7-17) H 02/14/25 17:15
Glucose 94 mg/dl (70-99) 02/14/25 17:15
Calcium 9.0 mg/dl (8.4-10.2) 02/14/25 17:15
Patient Allergies
Sulfa (Sulfonamide Antibiotics) Allergy (Verified 02/14/25 16:58)
Unknown
Medications
-
Active Medications
Generic Name Dose Route Start Last Admin
Trade Name Freq PRN Reason Stop Dose Admin
Bupropion HCl 300 mg 02/15/25 08:00
Bupropion (24hr) Extended Release 300 Mg Tablet PO 03/15/25 07:59
DAILY LAZARO
Duloxetine HCl 30 mg 02/15/25 08:00
Duloxetine Delayed Release 30 Mg Capsule PO 03/15/25 07:59
BID LAZARO
Ezetimibe 10 mg 02/15/25 08:00
Ezetimibe (Zetia) 10 Mg Tablet PO 03/15/25 07:59
DAILY LAZARO
Lisinopril 40 mg 02/15/25 08:00
Lisinopril 20 Mg Tablet PO 03/15/25 07:59
DAILY LAZARO
Metoprolol Succinate 12.5 mg 02/15/25 08:00
Metoprolol 12.5 Mg Extended Release Dose (1/2 Of 25 Mg Xl Tablet) PO 03/15/25 07:59
BID LAZARO
Pantoprazole Sodium 40 mg 02/15/25 08:00
Pantoprazole 40 Mg Delayed Release Tablet PO 03/15/25 07:59
DAILY LAZARO
Sodium Chloride 0 flush 02/15/25 01:00
Sodium Chloride 0.9% (Flush) Syringe IV 03/15/25 00:59
PER PROTOCOL LAZARO
Home Medications
�Medication �Instructions �Recorded
acetaminophen 325 mg tablet 325 mg PO BIDPRN PRN MILD PAIN 04/17/24
(Tylenol)
ashwagandha extract 500 mg capsule 500 mg PO DAILY 04/17/24
bupropion HCl 300 mg 24 hr tablet, 300 mg PO DAILY 04/17/24
extended release (Wellbutrin XL)
cholecalciferol (vitamin D3) 25 25 mcg PO DAILY 04/17/24
mcg (1,000 unit) tablet (Vitamin
D3)
ezetimibe 10 mg tablet (Zetia) 10 mg PO DAILY 04/17/24
lisinopril 20 mg tablet 40 mg PO DAILY 04/17/24
omega 0-ued-ihk-fish oil 1,000 mg 1 cap PO DAILY 04/17/24
(120 mg-180 mg) capsule (Fish Oil)
pantoprazole 40 mg tablet,delayed 40 mg PO DAILY 04/17/24
release (Protonix)
therapeutic multivitamin 1 tab PO DAILY 04/17/24
turmeric 400 mg capsule 400 mg PO DAILY 04/17/24
duloxetine 30 mg capsule,delayed 30 mg PO BID 02/14/25
release
metoprolol succinate 25 mg capsule 12.5 mg PO BID 02/14/25
sprinkle, ext. release 24 hr
Vital Signs and Labs
-
Vital Signs and Labs:
Vital Signs
Temp Pulse Resp BP Pulse Ox
36.3 C 74 16 113/67 98
02/15/25 11:46 02/15/25 11:46 02/15/25 11:46 02/15/25 11:46 02/15/25 08:00
Lab Results
02/14/25 17:15
02/14/25 17:15
PT 12.5 Sec (11.4-14.6) 02/14/25 17:15
INR 0.91 02/14/25 17:15
APTT 28.3 Sec (23.4-35.0) 02/14/25 17:15
Sodium 137 mmol/L (135-145) 02/14/25 17:15
Potassium 4.7 mmol/L (3.5-5.1) 02/14/25 17:15
BUN 22 mg/dl (7-17) H 02/14/25 17:15
Glucose 94 mg/dl (70-99) 02/14/25 17:15
Calcium 9.0 mg/dl (8.4-10.2) 02/14/25 17:15
LDL Cholesterol, Calc 113 mg/dl 02/15/25 07:53
Medications
-
Medications:
Generic Name Dose Route Start Last Admin
Trade Name Freq PRN Reason Stop Dose Admin
Bupropion HCl 300 mg 02/15/25 08:00 02/15/25 08:48
Bupropion (24hr) Extended Release 300 Mg Tablet PO 03/15/25 07:59 300 mg
DAILY LAZARO Administration
Duloxetine HCl 30 mg 02/15/25 08:00 02/15/25 08:48
Duloxetine Delayed Release 30 Mg Capsule PO 03/15/25 07:59 30 mg
BID LAZARO Administration
Ezetimibe 10 mg 02/15/25 08:00 02/15/25 08:48
Ezetimibe (Zetia) 10 Mg Tablet PO 03/15/25 07:59 10 mg
DAILY LAZARO Administration
Lisinopril 40 mg 02/15/25 08:00 02/15/25 08:48
Lisinopril 20 Mg Tablet PO 03/15/25 07:59 40 mg
DAILY LAZARO Administration
Metoprolol Succinate 12.5 mg 02/15/25 08:00 02/15/25 08:49
Metoprolol 12.5 Mg Extended Release Dose (1/2 Of 25 Mg Xl Tablet) PO 03/15/25 07:59 12.5 mg
BID LAZARO Administration
Pantoprazole Sodium 40 mg 02/15/25 08:00 02/15/25 08:49
Pantoprazole 40 Mg Delayed Release Tablet PO 03/15/25 07:59 40 mg
DAILY LAZARO Administration
Sodium Chloride 0 flush 02/15/25 01:00
Sodium Chloride 0.9% (Flush) Syringe IV 03/15/25 00:59
PER PROTOCOL LAZARO
Home Medications
-
Home Medications
acetaminophen 325 mg tablet (Tylenol) 325 mg PO BIDPRN PRN MILD PAIN 04/17/24
ashwagandha extract 500 mg capsule 500 mg PO DAILY 04/17/24
bupropion HCl 300 mg 24 hr tablet, extended release (Wellbutrin XL) 300 mg PO DAILY 04/17/24
cholecalciferol (vitamin D3) 25 mcg (1,000 unit) tablet (Vitamin D3) 25 mcg PO DAILY 04/17/24
ezetimibe 10 mg tablet (Zetia) 10 mg PO DAILY 04/17/24
lisinopril 20 mg tablet 40 mg PO DAILY 04/17/24
omega 5-rei-csl-fish oil 1,000 mg (120 mg-180 mg) capsule (Fish Oil) 1 cap PO DAILY 04/17/24
pantoprazole 40 mg tablet,delayed release (Protonix) 40 mg PO DAILY 04/17/24
therapeutic multivitamin 1 tab PO DAILY 04/17/24
turmeric 400 mg capsule 400 mg PO DAILY 04/17/24
duloxetine 30 mg capsule,delayed release 30 mg PO BID 02/14/25
metoprolol succinate 25 mg capsule sprinkle, ext. release 24 hr 12.5 mg PO BID 02/14/25
[2025-02-15] MEDS: ZESTRIL 40 MG PO (08:48)
[2025-02-15] MEDS: WELLBUTRIN XL (24 hour extended release) 300 MG PO (08:48)
[2025-02-15] MEDS: CYMBALTA DELAYED RELEASE 30 MG PO (08:48)
[2025-02-15] MEDS: ZETIA 10 MG PO (08:48)
[2025-02-15] MEDS: TOPROL XL 12.5 MG PO (08:49)
[2025-02-15] MEDS: PROTONIX 40 MG PO (08:49)
[2025-02-15 10:08] LABS: HDL Cholesterol 56 mg/dl; LDL Cholesterol, Calculated 113 mg/dl; Very Low Density Lipoprotein 23 mg/dl (0-30)
[2025-02-15 10:52] LABS: Glycohemoglobin (HgbA1c) 5.3 % (4.0-5.6)
--- NOTE | 2025-02-15 13:47 | W.PN.HOSP.TC ---
Addendum entered and electronically signed by Luis Lira MD 02/16/25 15:20:
[id number]
Original Note:
Today's Communication/Plan
-
Vestibular rehabilitation
Meclizine PRN
PT/OT
Can dc today, no further imaging if does well with PT/OT
Assessment / Plan
Assessment / Plan
Physical Exam
General: Well Developed, Well Nourished, No Apparent Distress, Comfortable and Conversant
HEENT: NormoCephalic, Moist mucous membranes and Atraumatic
Respiratory: Clear and Non Labored Respirations; No Wheezes, Rales, Rhonchi or Crackles
Cardiac: S1/S2 and Regular Rhythm; No Murmur, Rub or Gallop
Breast: Deferred by me
GI: Soft, Non Tender, Non Distended and Normal Bowel Sounds; No Organomegaly
Rectal: Deferred by Provider
Genito-urinary: Deferred by me
Musculoskeletal: No Clubbing, No Cyanosis and No Edema
Skin: Warm and IV/Catheter Site; No Rash
Neuro: Awake, AO x 3, No Motor Deficits, Nonfocal/grossly intact, Cranial Nerves Intact (II-XII) and No Sensory Deficits; No Slurred Speech, Facial Droop, Tremors or Sedated
Psych: Calm and Intact Judgment/Insight
#Dizziness
-likely Horizontal canal BPPV
-resolved
-Migraine with aura
-Vestibular rehab
-F/u Neuro/ENT outpt
-PT/OT
-no need for MRI
#hypertension
- continue lisinopril and metoprolol
#hyperlipidemia
- continue ezetimibe
#fibromyalgia
- continue Cymbalta
#migraines
#osteoporosis
Code status: full code
DVT prophylaxis: SCDs
More than 30 minutes spent in discharge including
Final examination of the patient
Summarizing hospital stay
Instructions for continuing care to all relevant caregivers
Preparation of discharge records, prescriptions, and referral forms
Total time spent (in minutes): 36
Anticipated Discharge: Today
Subjective/Interval History
-
Date of Service: February 15, 2025
dizziness improved
Objective Data
-
Vital Signs:
Vital Signs
Temp Pulse Resp BP Pulse Ox
97.3 F 74 16 113/67 98
02/15/25 11:46 02/15/25 11:46 02/15/25 11:46 02/15/25 11:46 02/15/25 08:00
Review of Systems
-
History Source: Patient
All other systems: Not reviewed unless documented
Data Reviewed
-
CT Scan: Report Reviewed by me
Labs: Labs Reviewed by me
--- NOTE | 2025-02-15 13:59 | W.DS.TRANS ---
DC Summary - [employer]
-
Discharge Instructions:
Discharge Diagnosis/Procedures Dizziness, Vertigo
Diet Low Cholesterol,Low Fat
Blood Work cbc and cmp in 1 week
Other Services OT,PT
Instructions:
Stand-Alone Forms:
Changes to Home Medications: Yes
Discharge Medications:
DC Medications w/original date entered in [facility]
acetaminophen 325 mg tablet (Tylenol) 325 mg PO BIDPRN PRN MILD PAIN 04/17/24
ashwagandha extract 500 mg capsule 500 mg PO DAILY 04/17/24
bupropion HCl 300 mg 24 hr tablet, extended release (Wellbutrin XL) 300 mg PO DAILY 04/17/24
cholecalciferol (vitamin D3) 25 mcg (1,000 unit) tablet (Vitamin D3) 25 mcg PO DAILY 04/17/24
ezetimibe 10 mg tablet (Zetia) 10 mg PO DAILY 04/17/24
lisinopril 20 mg tablet 40 mg PO DAILY 04/17/24
omega 5-dkq-fdy-fish oil 1,000 mg (120 mg-180 mg) capsule (Fish Oil) 1 cap PO DAILY 04/17/24
pantoprazole 40 mg tablet,delayed release (Protonix) 40 mg PO DAILY 04/17/24
therapeutic multivitamin 1 tab PO DAILY 04/17/24
turmeric 400 mg capsule 400 mg PO DAILY 04/17/24
duloxetine 30 mg capsule,delayed release 30 mg PO BID 02/14/25
metoprolol succinate 25 mg capsule sprinkle, ext. release 24 hr 12.5 mg PO BID 02/14/25
meclizine 25 mg tablet 25 mg PO BID PRN dizziness #14 tabs 02/15/25
Home Medication Changes
meclizine 25 mg tablet 25 mg PO BID PRN dizziness #14 tabs 02/15/25
Pending Results: No
--- NOTE | 2025-02-15 15:13 | CM ---
Met with patient and spouse at bedside
BEACH form explained and signed @ 1510
Pharmacy verified: [facility] @ [address] [facility], [place]
Lives w/ ; multilevel home; 2 steps to enter; lives on 1st floor; bath has walk-in shower, shower chair
PLOF: independent with ambulation, stairs, and ADLs; drives; retired teacher
No SNF or Home Health utilization history
will transport home
Plan: Discharge to home today; resume outpatient therapy
== END 2025-02-15 15:37 | disposition home or self-care (01) ==
LOC: 4 WEST ACU 23:30
PROVIDERS: Emergency Medicine; ADMITTING PHYSICIAN Internal Medicine; ATTENDING PHYSICIAN Internal Medicine; CONSULT PHYSICIAN Psychiatry & Neurology Neurology; EMERGENCY PHYSICIAN Emergency Medicine; FAMILY PHYSICIAN Internal Medicine
DX: H81.11 Benign paroxysmal vertigo, right ear (principal); I10 Essential (primary) hypertension; H81.4 Vertigo of central origin; E78.5 Hyperlipidemia, unspecified; G43.109 Migraine with aura, not intractable, without status migrainosus; F41.1 Generalized anxiety disorder; M79.7 Fibromyalgia; M81.0 Age-related osteoporosis without current pathological fracture; Q79.60 Ehlers-Danlos syndrome, unspecified; Z96.612 Presence of left artificial shoulder joint; Z96.653 Presence of artificial knee joint, bilateral; Z87.891 Personal history of nicotine dependence; Z88.2 Allergy status to sulfonamides; Z79.899 Other long term (current) drug therapy; Z60.2 Problems related to living alone
CPT/HCPCS: 70450; 80053; 80061; 83036; 85025; 85610; 85730; 93005; 96360; 97162; 97165; 99285; G0378